=== PATIENT | male | born 1940 | race African-American/Black ===

== ENCOUNTER 2017-03-04 14:27 | Observation (INO) | payer MEDICARE, MEDICAID ==
[2017-03-04 15:52] LABS: Hematocrit 46.3 % (42.0-52.0); Mean Platelet Volume 8.8 fL (7.4-10.4); Red Blood Cell (RBC) Count 4.89 mill/uL (4.70-6.10); White Blood Cell (WBC) Count 8.1 thou/uL (4.8-10.8)
[2017-03-04 16:12] LABS: Troponin I 0.046 ng/mL (< 0.028)
[2017-03-04 16:13] LABS: ALT (SGPT) 63 U/L (8-55); AST (SGOT) 27 U/L (5-34); Alkaline Phosphatase 80 U/L (40-150); Anion Gap 19 mmol/L (10-20); BUN (Urea Nitrogen) 27 mg/dL (8.4-25.7); Bilirubin, Total 0.4 mg/dL (0.2-1.2); CK (CPK) 95 U/L (30-200); Calc. Creatinine Clearance 0 mL/min (70-130); Calcium 9.6 mg/dL (7.8-10.44); Carbon Dioxide 18 mmol/L (23-31); Chloride 110 mmol/L (98-107); Estimated GFR-MDRD 56; Globulin 3.1 g/dL (2.4-3.5); Protein, Total 7.1 g/dL (5.8-8.1)
[2017-03-04 16:30] LABS: Anisocytosis SLIGHT = 6-15 cells (100X) (0-5/hpf); Neutrophil 86 % (42-75); Nucleated RBC 2 % (0)
[2017-03-04] MEDS ORDERED: Ondansetron HCl/PF 4 MG/2 ML Vial IVP PRN (17:56)
[2017-03-04] MEDS ORDERED: HYDROcodone/Acetaminophen 10/325 mg Tablet PO PRN (17:56)
[2017-03-04] MEDS ORDERED: Albuterol Sulfate 2.5 mg/3 ml Neb NEB PRN (17:56)
[2017-03-04] MEDS ORDERED: HYDROcodone/Acetaminophen 5/325 mg Tablet PO PRN (17:56)
[2017-03-04] MEDS ORDERED: Guaifenesin DM 100-10/5 ML UDCUP PO PRN (17:56)
[2017-03-04] MEDS ORDERED: Acetaminophen 325 MG TAB PO PRN (17:56)
[2017-03-04 18:17] VITALS: BMI 22.4
[2017-03-04 18:58] LABS: Troponin I 0.042 ng/mL (< 0.028)
[2017-03-04] MEDS: Famotidine 40 MG/4 ML VIAL SLOW IVP SCH (20:36)
--- NOTE | 2017-03-04 23:19 | HP ---
PRIMARY CARE PHYSICIAN: Dr. Amaya. CHIEF COMPLAINT: Sore throat, cough, and hypoxia. HISTORY OF PRESENT ILLNESS: Mr. Ortega is a pleasant 76-year-old -[place] male with a his tory of chronic tobacco abuse, quit several years ago and now resultant severe COPD. He was in norm vt state of health this morning he started developing acute shortness of breath. Per the notes, the EMS found him with oxygen saturation of 70% while on oxygen. He is normally on 4 liters of oxygen at home and is oxygen dependent. In the emergency department on arrival, 88% on room air, 97% on 4 liters, but on route they gave 125 mg IV Solu-Medrol and 3 nebulizer treatments back to back. Incid entally, he was complaining of left shoulder and neck pain. He states this was chronic in nature an d is unchanged from previous episodes. He was brought to the emergency department from [facility] for further evaluation. Labs are largely unremarkable. Creatinine minimally elevated at 0.047, which is actually better ean n any value has had in the last couple years and we were called for admission for chest pain. PAST MEDICAL HISTORY: 1. Hyperlipidemia. 2. Congestive heart failure, likely diastolic. 3. Cor pulmonale with elevated right heart pressures. 4. Chronic obstructive pulmonary disease. 5. Diverticulosis. 6. History of CVA about 6 months ago. 7. History of chronic bronchitis. 8. Peripheral vascular disease. PAST SURGICAL HISTORY: Includes a femoral angiography, he is unsure if he had any stents or not. HOME MEDICATIONS: 1. Albuterol nebulizers 3 mL inhaled q.6 hours as needed. 2. Allopurinol 300 mg daily. 3. Aspirin 81 mg daily. 4. Crestor 5 mg p.o. at bedtime. 5. Plavix 75 mg daily. 6. Lasix 20 mg p.o. daily. 7. Neurontin 300 mg p.o. t.i.d. 8. Hydralazine 50 mg p.o. daily. 9. Lisinopril 40 mg p.o. b.i.d. 10. Metoprolol 50 mg daily. 11. Nifedipine 60 mg daily. 12. K-Dur 10 mEq daily. 13. Spiriva 18 mcg inhaled daily. 14. Theophylline ER 200 mg daily. 15. Pentoxifylline 400 mg daily. 16. Zantac 150 mg p.o. daily. 17. Vincent p.r.n. ALLERGIES: NKDA. FAMILY HISTORY: Negative for clotting or bleeding disorder, no immune dysfunction. SOCIAL HISTORY: Past tobacco abuse. No alcohol or drugs. He is currently a resident at [facility]. REVIEW OF SYSTEMS: A 10-point review of systems was performed, negative for all other systems excep t as stated as per HPI. PHYSICAL EXAMINATION: VITAL SIGNS: Temperature 97.5, pulse 92, blood pressure 148/87, respiratory rate 22, O2 sat 97% on 4 liters. GENERAL: He is awake. He is alert. He is oriented x3, he is an old chronically appearing - [place] male appears to be in no acute distress. HEENT: Normocephalic, atraumatic. Pupils are equal, reactive bilaterally. He does have bilateral arcus senilis. Mucous membrane moist. No visible lesion or thrush. Nasal cannula is in place. NECK: Supple. No lymphadenopathy, JVD or thyromegaly. He has normal carotid upstrokes. I do not appreciate bruits. LUNGS: He has poor air movement bilaterally and is using his belly for respirations. He has no int ercostal retractions. No audible wheezes. No rales or rhonchi. CARDIOVASCULAR: Normal S1 and S2, I do not appreciate an S3 or S4. No audible murmurs. ABDOMEN: Soft, it is nontender, nondistended with no masses. No organomegaly. He has no rebound o r rigidity. He has good bowel sounds present in all 4 quadrants. EXTREMITIES: No cyanosis or clubbing. Does have 2+ edema to the mid tibial level bilaterally. Whe n ask, he said this is a normal finding. SKIN: Warm, moist, and well perfused without any rashes or lesions. MUSCULOSKELETAL: Normal to inspection. He has no inflamed joints. No palpable joint effusions and adequate range of motion. NEUROLOGIC: Cranial nerves II-XII are grossly intact without any focal neurologic deficit. He has normal speech and 5/5 strength. LABORATORY DATA: His basic metabolic profile is fairly normal. Creatinine is elevated at 1.48, whi ch is above his baseline, creatinine is 27. Electrolytes are normal. Bicarbonate is a little bit l ow at 18. Liver functions were normal except for an ALT of 63. White blood cell count of 8.1, hemo globin 15.2, hematocrit of 46.3, and platelet count 189,000. Chest x-ray showed hyperexpansion, but no infiltrates and no chronic markings. ASSESSMENT AND PLAN: 1. Acute exacerbation of chronic obstructive pulmonary disease: Seems to be improved with Solu-Med rol and nebs. We will place him on IV Solu-Medrol, scheduled DuoNeb, q.2 hour p.r.n., albuterol, an d reserve antibiotics. He states that started this morning when we noticed, he had a sore throat. 2. Noncardiac neck and shoulder pain: His troponin is actually better than normal. We will contin ue to watch him. Seems to be noncardiac in nature. 3. History of elevated heart pressure/cor pulmonale/diastolic congestive heart failure: Volume sta tus appears adequate. We will treat his lungs and should relieve some of the swelling. 4. Diverticulosis not currently active. 5. History of cerebrovascular accident: I will continue home medications. 6. History of chronic bronchitis. We will continue his long-acting inhalers.
--- NOTE | 2017-03-04 23:41 | RAD ---
CHEST ONE VIEW: History: Dyspnea. Hypoxia. Comparison: 01-16-17 FINDINGS: Cardiac silhouette is magnified and upper limits of normal in size. Pulmonary vasculature is upper l imits of normal. Patchy areas of parenchymal infiltrate throughout each lung remain most pronounced at the lung bases and have progressed slightly since the prior study. Mediastinum is midline with ao rtic calcification. No evidence of pneumothorax. IMPRESSION: 1. Progression of patchy bilateral airspace disease is likely related to pulmonary vascular congesti on. 2. Atherosclerosis. POS: ANDERSONH
[2017-03-05 02:02] LABS: Band 5 % (5-11); Hematocrit 44.5 % (42.0-52.0); Mean Platelet Volume 8.6 fL (7.4-10.4); Neutrophil 78 % (42-75); Nucleated RBC 3 % (0); Red Blood Cell (RBC) Count 4.72 mill/uL (4.70-6.10); White Blood Cell (WBC) Count 6.5 thou/uL (4.8-10.8)
[2017-03-05 02:21] LABS: Troponin I 0.042 ng/mL (< 0.028)
[2017-03-05 02:31] LABS: Anion Gap 17 mmol/L (10-20); BUN (Urea Nitrogen) 28 mg/dL (8.4-25.7); Calc. Creatinine Clearance 45 mL/min (70-130); Carbon Dioxide 16 mmol/L (23-31); Chloride 112 mmol/L (98-107); Estimated GFR-MDRD 57
[2017-03-05] MEDS ORDERED: Enoxaparin Sodium 40 MG/0.4 ML SYRINGE SC SCH (09:00)
[2017-03-05] MEDS: Famotidine 40 MG/4 ML VIAL SLOW IVP SCH (09:35)
[2017-03-05] MEDS ORDERED: Gabapentin 300 MG CAP PO PRN (11:53)
[2017-03-05] MEDS ORDERED: NIFEdipine XL 60 MG TAB PO SCH (12:30)
[2017-03-05] MEDS ORDERED: Lisinopril 20 MG TAB PO SCH ×2 (12:30→21:00)
--- NOTE | 2017-03-05 14:57 | DIS ---
DATE OF ADMISSION: 03/04/2017 DATE OF DISCHARGE: 03/05/2017 DISCHARGE DIAGNOSES: 1. Acute on chronic hypoxic respiratory failure. 2. Acute exacerbation of chronic obstructive pulmonary disease. 3. Coronary artery disease. 4. Pulmonary hypertension. 5. Chronic diastolic heart failure without acute exacerbation. 6. Noncardiac shoulder and neck pain. CONSULTATIONS: None. PROCEDURES: None. HOSPITAL COURSE: Mr. Ortega is a 76-year-old -[place] male with known COPD who apparently was found in the alf with oxygen saturation in the 70s. EMS was called and he was picked up. He was brought to the emergency department for evaluation and on round was given Solu-Medrol an d 3 nebulizer treatments. On arrival, he was 88% on room air, but is always on 4 liters nasal cannula and on 4 liters nasal ca nnula was 97%. We were called for admission. HOSPITAL COURSE: The patient seen and examined in the ER. He was placed in observation due to the possibility of having a low saturation previously. He was continued on Solu-Medrol overnight and sc heduled DuoNebs with p.r.n. albuterol. By the morning, he was feeling much better and breathing was back to his baseline. He denies any chest pain or sputum production, no nausea or vomiting, no michael rrhea or constipation. The sore throat was improved from admission. PHYSICAL EXAMINATION: The patient was seen and examined on the day of discharge. DISCHARGE PLAN: Discharge plan and disposition were discussed with the patient face to face at the bedside. DISCHARGE MEDICATIONS: 1. Please see medicine discharge reconciliation. New medications: Albuterol sulfate was changed t o 2.5 mg nebulized every 2 hours as needed for shortness of breath or wheezing. 2. Guaifenesin DM 100/10 15 mL p.o. q.4 hours p.r.n. cough. 3. Guaifenesin ER 1200 mg p.o. b.i.d. 4. Prednisone 40 mg p.o. q.a.m. to decrease by 10 mg every 3 days until tapered off. The rest of h is medications are unchanged. PENDING LABORATORY EVALUATION: None. PENDING IMAGING STUDIES: None. DISCHARGE CONDITION: Good. DISPOSITION: To be discharged back to the [facility]. He came from this locati on. FOLLOWUP: 1. PCP within a week. 2. Contacted Cardiology regarding rescheduling his visits for possible heart catheterization in the near future. 3. Follow up with his lung doctor in 3 to 4 weeks.
[2017-03-05] MEDS ORDERED: hydrALAZINE 25 MG TAB PO SCH (15:00)
[2017-03-05 15:27] VITALS: BP 131/80; TEMP 97.8
[2017-03-05] MEDS ORDERED: Mometasone/Formoterol 120 PUFF INHALER INH SCH (18:30)
[2017-03-05] MEDS ORDERED: Atorvastatin Calcium 10 MG TAB PO SCH (21:00)
[2017-03-05] MEDS ORDERED: Famotidine 20 MG TAB PO SCH (21:00)
[2017-03-05] MEDS ORDERED: Ketotifen Fumarate 0.025% Ophth Soln 5 ml Bottle EA EYE SCH (21:00)
[2017-03-06] MEDS ORDERED: Furosemide 20 MG TAB PO SCH (09:00)
[2017-03-06] MEDS ORDERED: Multivitamin W/ Minerals 1 TAB PO SCH (09:00)
[2017-03-06] MEDS ORDERED: Aspirin 81 mg Enteric Coated Tablet PO SCH (09:00)
[2017-03-06] MEDS ORDERED: Spiriva 18 MCG CAP (Box of 5 Caps) INH SCH (09:00)
[2017-03-06] MEDS ORDERED: Potassium Chloride 10 MEQ TAB PO SCH (09:00)
[2017-03-06] MEDS ORDERED: ROSUVASTATIN CALCIUM 5 MG PO SCH (09:00)
[2017-03-06] MEDS ORDERED: Clopidogrel Bisulfate 75 MG TAB PO SCH (09:00)
[2017-03-06] MEDS ORDERED: NIFEdipine XL 60 MG TAB PO SCH (09:00)
[2017-03-06] MEDS ORDERED: Allopurinol 300 MG TAB PO SCH (09:00)
--- NOTE | 2017-04-27 12:41 | EKG ---
Test Reason : Blood Pressure : / mmHG Vent. Rate : 096 BPM Atrial Rate : 096 BPM P-R Int : 152 ms QRS Dur : 146 ms QT Int : 390 ms P-R-T Axes : 043 238 -26 degrees QTc Int : 492 ms Normal sinus rhythm Possible Left atrial enlargement Right bundle branch block , plus right ventricular hypertrophy Inferior infarct , age undetermined Anterolateral infarct , age undetermined Abnormal ECG Confirmed by JUAN J FERNANDEZ, JOSIAS ([id number]), editor house organ JUAN JOSE PRASAD ([id number]) on 04/27/2017 12:40:54 PM Referred By: Confirmed By:JOSIAS ARITA MD
== END 2017-03-05 15:31 ==
LOC: ERS 14:27 → 2SW 16:39
PROVIDERS: ADMIT Internal Medicine Infectious Disease; ATTEND Internal Medicine Infectious Disease
DX: J96.21 Acute and chronic respiratory failure with hypoxia (principal); J44.1 Chronic obstructive pulmonary disease with (acute) exacerbation; I25.10 Atherosclerotic heart disease of native coronary artery without angina pectoris; I27.2 Other secondary pulmonary hypertension; I50.32 Chronic diastolic (congestive) heart failure; M25.519 Pain in unspecified shoulder; M54.2 Cervicalgia; E78.5 Hyperlipidemia, unspecified; I27.81 Cor pulmonale (chronic); I73.9 Peripheral vascular disease, unspecified; Z98.890 Other specified postprocedural states; Z79.02 Long term (current) use of antithrombotics/antiplatelets; Z79.82 Long term (current) use of aspirin; Z79.52 Long term (current) use of systemic steroids; Z79.899 Other long term (current) drug therapy; Z87.891 Personal history of nicotine dependence; Z86.73 Personal history of transient ischemic attack (TIA), and cerebral infarction without residual deficits
CPT/HCPCS: 36415; 36416; 71010; 80048; 80053; 82553; 83880; 84484; 85025; 93005; 94640; 94760; J1650; J2920; J7620